=== PATIENT | female | born 1975 | race Caucasian/White ===

== ENCOUNTER 2016-11-14 09:30 | Emergency (ER) | payer BC ==
[2016-11-14 10:25] VITALS: BP 133/86
[2016-11-14] MEDS ORDERED: Ibuprofen TAB* 600 MG PO ONE (10:47)
[2016-11-14] MEDS ORDERED: Tetan/Diph/Pertus SYR(Tdap)* 0.5 ML SYR(BOOSTRIX) use SYR IM ONE (10:47)
--- NOTE | 2016-11-14 10:51 | UC ---
Throat Pain/Nasal Harjeet HPI - HPI Summary HPI Summary: 40 female presents with complaints of sudden onset beginning yesterday 11/13/16 of sore throat, fatigue, headache, heavy head, body aches and low grade fever. Patient states she tried gargling with salt water multiple times to help with sore throat without relief. She was up during the night due to sore throat being so painful. Has not taken any medication for her symptoms. States she feels as though her lymph nodes are also swollen. Denies abdominal pain, vomiting, difficulty breathing, nasal congestion, cough and ear pain. Fever taken via ear to be 100.1F, yesterday. No PMHx. Patient also states she does not know when her tetanus was last updated and thinks it was over 10 years ago. She has been working in the [employer] and sustained to [employer] this past Sunday. Was unsure if symptoms were due to this. Has had positive blood mono test in the past. - History of Current Complaint Chief Complaint: UCRespiratory Stated Complaint: THROAT,FEVER,RUIZ Time Seen by Provider: 11/14/16 10:11 Hx Obtained From: Patient Hx Last Menstrual Period: 11/03/16 ?: No Onset/Duration: Sudden Onset Severity: Moderate Pain Intensity: 4 Pain Scale Used: 0-10 Numeric Cough: None Associated Signs & Symptoms: Positive: Dysphagia, Sinus Discomfort, Fever - Allergies/Home Medications Allergies/Adverse Reactions: Allergies Allergy/AdvReac Type Severity Reaction Status Date / Time seasonal Allergy Eyes Uncoded 11/14/16 10:14 Itchy/Swollen/Red/Watery Home Medications: Home Medications Cetirizine-Pseudoephedrine [Allergy D-12] 1 tab PO DAILY 11/14/16 [History Confirmed 11/14/16] PMH/Surg Hx/FS Hx/Imm Hx Endocrine History Of: Reports: Thyroid Disease - Hypothyroidism Denies: Diabetes Cardiovascular History Of: Denies: Cardiac Disorders Respiratory History Of: Denies: Asthma - Surgical History Surgical History: Yes Surgery Procedure, Year, and Place: Right Bunionectomy, 2011, [facility] [place] - Family History Known Family History: Positive: None - Social History Alcohol Use: Daily Alcohol Amount: 1 cocktail Substance Use Type: None Smoking Status (MU): Never Smoked Tobacco - Immunization History Most Recent Influenza Vaccination: 06/13/13 Review of Systems Constitutional: Fever, Fatigue Skin: Negative ENT: Sore Throat Respiratory: Negative Cardiovascular: Negative Gastrointestinal: Negative Motor: Negative Neurovascular: Negative Musculoskeletal: Myalgia Neurological: Headache All Other Systems Reviewed And Are Negative: Yes Physical Exam Triage Information Reviewed: Yes Appearance: Well-Appearing, No Pain Distress, Well-Nourished Vital Signs: Initial Vital Signs Temp 98.5 F 11/14/16 10:01 Pulse 89 11/14/16 10:01 Resp 18 11/14/16 10:01 BP 133/86 11/14/16 10:01 Pulse Ox 100 11/14/16 10:01 Vital Signs Reviewed: Yes Eyes: Positive: Conjunctiva Clear ENT: Positive: Normal ENT inspection, Hearing grossly normal, Pharyngeal erythema, TMs normal. Negative: Nasal congestion, Nasal drainage, Tonsillar swelling, Tonsillar exudate, Trismus, Muffled/hoarse voice Dental: Positive: Percussion Tenderness @ - some pressure on maxilary sinus b/l , Cervical Lymphadenopathy Neck: Positive: Supple, Nontender, No Lymphadenopathy Respiratory: Positive: Chest non-tender, Lungs clear, Normal breath sounds, No respiratory distress, No accessory muscle use. Negative: Rhonchi, Stridor, Wheezing Cardiovascular: Positive: RRR, No Murmur, Pulses Normal, Brisk Capillary Refill Abdomen Description: Positive: Nontender, No Organomegaly, Soft. Negative: CVA Tenderness (R), CVA Tenderness (L), Distended, Guarding, Splenomegaly Bowel Sounds: Positive: Present Musculoskeletal: Positive: Strength Intact, ROM Intact, No Edema Neurological: Positive: Alert Skin Exam: Normal Throat Pain/Nasal Course/Dx - Course Course Of Treatment: given updated tdap while in office. educated and reassured these symptoms do not resemble tetanus and recent exposure did not cause this. appears to be suffering from a viral illness, possibly acute mononucleosis. Patient has been diagnosed with mono in the past and has PE findings/HPI consistent with mono. Given ibuprofen while in office, strep culture obtained and negative. Fluids, rest and NSAIDs. Chloraspetic spray to help with sore throat. Aware of worsening signs and symptoms to watch out for. Follow up with PCP. Did not want blood test for mono at this time. Symptomatic treatment at this time, no concern for bacterial infection. does not appear to be sinusitis. normal vitals. - Differential Dx/Diagnosis Differential Diagnosis/HQI/PQRI: Influenza, Mononucleosis, Pharyngitis, Sinusitis, Tonsillitis, URI Provider Diagnoses: pharyngitis, acute mononucleosis Discharge - Discharge Plan Condition: Stable Disposition: HOME Patient Education Materials: Mononucleosis (ED), Pharyngitis (ED) Referrals: Vanesa Ashraf MD [Primary Care Provider] - Additional Instructions: Take Ibuprofen or Tylenol for pain and fever. Increase fluid intake and get plenty of rest. Continue gargling with salt water. Refrain from physical activity and strenuous exercise until released by PCP. If your symptoms do not improve please return. Follow up with your primary care provider.
== END 2016-11-14 11:14 | disposition home or self-care (01) ==
LOC: UCCORT 09:30
DX: J02.9 Acute pharyngitis, unspecified (principal); B27.90 Infectious mononucleosis, unspecified without complication
CPT/HCPCS: 87651; 90471; 90715; 99212; A9270-GY; G0463

== ENCOUNTER 2017-07-16 13:41 | Emergency (ER) | payer BC | END 2017-07-16 15:48 | disposition left against medical advice (07) | LOC: UCCORT 13:41 | DX: H93.90 Unspecified disorder of ear, unspecified ear (principal); R11.0 Nausea; R51 Headache; Z53.21 Procedure and treatment not carried out due to patient leaving prior to being seen by health care provider ==

== ENCOUNTER 2018-07-28 08:48 | Emergency (ER) | payer BC ==
[2018-07-28 09:06] VITALS: BP 128/71
[2018-07-28 09:18] LABS: Influenza A Molecular POSITIVE (Negative)
--- NOTE | 2018-07-28 09:45 | UC ---
FLU HPI - HPI Summary HPI Summary: 42-year-old woman comes in with a day and a half of symptoms of fevers chills and body aches and a dry cough. She also has some rhinorrhea. She tries over- the-counter medicines are not helping. Her has been diagnosed with influenza. No shortness of breath no chest congestion. - History of Current Complaint Chief Complaint: UCRespiratory Stated Complaint: FLU SXS Time Seen by Provider: 07/28/18 09:31 Hx Last Menstrual Period: 07/05/18 Pain Intensity: 0 - Allergy/Home Medications Allergies/Adverse Reactions: Allergies Allergy/AdvReac Type Severity Reaction Status Date / Time seasonal Allergy Eyes Uncoded 07/28/18 09:00 Itchy/Swollen/Red/Watery Home Medications: Home Medications Benzonatate CAP* [Tessalon 100 MG CAP*] 200 mg PO ONCE PRN 07/28/18 [History Confirmed 07/28/18] Ibuprofen TAB* [Advil TAB*] 800 mg PO Q6H PRN 07/28/18 [History Confirmed ] PMH/Surg Hx/FS Hx/Imm Hx Previously Healthy: Yes - Surgical History Surgical History: Yes Surgery Procedure, Year, and Place: Right Bunionectomy, 2012, [facility] [place]. appy - Family History Known Family History: Positive: None - Social History Alcohol Use: Occasionally Alcohol Amount: 1 cocktail Substance Use Type: None Smoking Status (MU): Never Smoked Tobacco - Immunization History Most Recent Influenza Vaccination: 06/13/13 Review of Systems All Other Systems Reviewed And Are Negative: Yes Constitutional: Positive: Fever, Chills Skin: Positive: Negative Eyes: Positive: Negative ENT: Positive: Sore Throat, Nasal Discharge, Sinus Congestion Respiratory: Positive: Cough Cardiovascular: Positive: Negative Gastrointestinal: Positive: Negative Motor: Positive: Negative Neurovascular: Positive: Negative Musculoskeletal: Positive: Myalgia Neurological: Positive: Negative Psychological: Positive: Negative Is Patient Immunocompromised?: No Physical Exam Triage Information Reviewed: Yes Appearance: No Pain Distress, Well-Nourished, Ill-Appearing - mild Vital Signs: Initial Vital Signs Temp 98.9 F 07/28/18 09:01 Pulse 86 07/28/18 09:01 Resp 15 07/28/18 09:01 BP 128/71 07/28/18 09:01 Pulse Ox 100 07/28/18 09:01 Vital Signs Reviewed: Yes Eye Exam: Normal Eyes: Positive: Conjunctiva Clear ENT: Positive: Pharyngeal erythema, Nasal congestion, Nasal drainage, TMs normal Neck exam: Normal Neck: Positive: Supple Respiratory: Positive: Lungs clear, Normal breath sounds, No respiratory distress Cardiovascular: Positive: RRR Musculoskeletal Exam: Normal Musculoskeletal: Positive: Strength Intact, ROM Intact Neurological Exam: Normal Neurological: Positive: Alert, Muscle Tone Normal Psychological Exam: Normal Psychological: Positive: Age Appropriate Behavior Skin Exam: Normal Flu Course/Dx - Differential Dx/Diagnosis Provider Diagnosis: Influenza Discharge - Sign-Out/Discharge Documenting (check all that apply): Patient Departure All imaging exams completed and their final reports reviewed: No Studies - Discharge Plan Condition: Stable Disposition: HOME Prescriptions: Benzonatate CAP* [Tessalon 100 MG CAP*] 100 mg PO TID PRN #20 cap PRN Reason: Cough Oseltamivir CAP* [Tamiflu CAP*] 75 mg PO BID #10 cap Patient Education Materials: Influenza (ED) Referrals: [facility] [place] PHYSICIAN REFERRAL [Outside] Additional Instructions: FOLLOW UP WITH YOUR DOCTOR IF NOT COMPLETELY IMPROVED. GET RECHECKED FOR ANY WORSENING OF YOUR CONDITION OR QUESTIONS OR CONCERNS. - Billing Disposition and Condition Condition: STABLE Disposition: Home
== END 2018-07-28 09:50 | disposition home or self-care (01) ==
LOC: UCCORT 08:48
DX: J11.1 Influenza due to unidentified influenza virus with other respiratory manifestations (principal); Z91.09 Other allergy status, other than to drugs and biological substances
CPT/HCPCS: 99212; G0463

== ENCOUNTER 2019-03-24 07:33 | Emergency (ER) | payer BC ==
[2019-03-24 07:52] VITALS: BP 118/77
[2019-03-24 08:31] LABS: Influenza A Molecular NEGATIVE (Negative); Influenza B Molecular NEGATIVE (Negative)
--- NOTE | 2019-03-24 08:50 | UC ---
Throat Pain/Nasal Harjeet HPI - HPI Summary HPI Summary: 43-year-old female comes in with chief complaint of 7 days of upper respiratory tract infection symptoms. Right now she has frontal and maxillary sinus pressure. She has been taking [id number] medicines which to help some with the symptoms. She also has bodyaches. Some cough minimal chest congestion no shortness of breath no abdominal pain no diarrhea no burning with urination. Also been having fatigue. She had a sore throat last week but that' s improved. Overnight she had a fever of 101. - History of Current Complaint Chief Complaint: UCGeneralIllness Stated Complaint: FEVER,FLU LIKE SYMPTOMS Time Seen by Provider: 03/24/19 08:11 Hx Last Menstrual Period: 03/02/19 Pain Intensity: 0 - Allergies/Home Medications Allergies/Adverse Reactions: Allergies Allergy/AdvReac Type Severity Reaction Status Date / Time seasonal Allergy Eyes Uncoded 03/24/19 07:52 Itchy/Swollen/Red/Watery PMH/Surg Hx/FS Hx/Imm Hx Previously Healthy: Yes Endocrine History: Hypothyroidism - Surgical History Surgical History: Yes Surgery Procedure, Year, and Place: Right Bunionectomy, 2012, [facility] [place]. appy - Family History Known Family History: Positive: None - Social History Alcohol Use: Daily Alcohol Amount: 1 cocktail Substance Use Type: None Smoking Status (MU): Never Smoked Tobacco - Immunization History Most Recent Influenza Vaccination: 06/13/13 Review of Systems All Other Systems Reviewed And Are Negative: Yes Constitutional: Positive: Fever, Fatigue, Other - SEE HPI Skin: Positive: Negative Eyes: Positive: Negative ENT: Positive: Sore Throat, Sinus Congestion, Sinus Pain/Tenderness Respiratory: Positive: Other - SEE HPI Cardiovascular: Positive: Negative Gastrointestinal: Positive: Negative Motor: Positive: Negative Neurovascular: Positive: Negative Musculoskeletal: Positive: Negative Neurological: Positive: Other - SEE HPI Psychological: Positive: Negative Is Patient Immunocompromised?: No Physical Exam Triage Information Reviewed: Yes Appearance: No Pain Distress, Well-Nourished, Ill-Appearing - MILD Vital Signs: Initial Vital Signs Temp 98.4 F 03/24/19 07:49 Pulse 83 03/24/19 07:49 Resp 18 03/24/19 07:49 BP 118/77 03/24/19 07:49 Pulse Ox 100 03/24/19 07:49 Vital Signs Reviewed: Yes Eye Exam: Normal Eyes: Positive: Conjunctiva Clear ENT: Positive: Pharyngeal erythema, Nasal congestion, Nasal drainage, TMs normal Neck: Positive: Supple Respiratory: Positive: Lungs clear, Normal breath sounds, No respiratory distress Cardiovascular: Positive: RRR Musculoskeletal: Positive: Strength Intact, ROM Intact Neurological: Positive: Alert, Muscle Tone Normal Psychological: Positive: Age Appropriate Behavior Skin Exam: Normal Throat Pain/Nasal Course/Dx - Course Course Of Treatment: DISCUSSED VIRAL VERSES BACTERIAL INFECTIONS AND THE ROLE OF ANTIBIOTIC. PATIENT PREFERS TO BE ON ANTIBIOTICS AT THIS TIME. Patient also had a concern about the possibility of mononucleosis. If the patient does not improve or worsens she's get reevaluated. She'll also continue symptomatically treatment. - Differential Dx/Diagnosis Provider Diagnosis: Sinusitis Discharge ED - Sign-Out/Discharge Documenting (check all that apply): Patient Departure All imaging exams completed and their final reports reviewed: No Studies - Discharge Plan Condition: Stable Disposition: HOME Prescriptions: Cefdinir [Cefdinir 300 MG CAP] 300 mg PO BID #20 capsule Patient Education Materials: Sinusitis (ED) Referrals: Roman See MD [Primary Care Provider] - Additional Instructions: FOLLOW UP WITH YOUR DOCTOR IF NOT COMPLETELY IMPROVED. GET RECHECKED SOONER IF WORSE OR ANY QUESTIONS OR CONCERNS. - Billing Disposition and Condition Condition: STABLE Disposition: Home
== END 2019-03-24 08:54 | disposition home or self-care (01) ==
LOC: UCCORT 07:33
DX: J32.9 Chronic sinusitis, unspecified (principal); Z91.09 Other allergy status, other than to drugs and biological substances
CPT/HCPCS: 87651; 99211; G0463